=== PATIENT | female | born 2000 | race African-American/Black ===

== ENCOUNTER 2018-10-04 17:46 | Emergency (ER) | payer MEDICAID, OTHER ==
[2018-10-04 18:25] LABS: #Eosinphils 0.1 thou/uL (0.0-0.7); #Lymphocytes 1.5 thou/uL (1.20-3.40); #Monocytes 0.6 thou/uL (0.11-0.59); #Neutrophils 9.6 thou/uL (1.40-6.50); %Basophils 0.2 % (0.0-1.0); %Eosinophils 0.5 % (0.0-10.0); %Lymphocytes 12.6 % (28.0-48.0); %Monocytes 5.1 % (0.0-4.0); %Neutrophils 81.6 % (31.0-61.0); Hemoglobin 11.3 g/dL (12.0-16.0); Mean Corpuscular HGB CONC 33.6 g/dL (32.0-36.0); Mean Corpuscular Hemoglobin 27.2 pg (25.0-35.0); Mean Corpuscular Volume 80.8 fL (78.0-98.0); Mean Platelet Volume 8.4 fL (7.4-10.4); Platelet Count 257 thou/uL (130-400); RBC Distribution Width 13.6 % (11.5-14.5); Red Blood Cell (RBC) Count 4.16 mill/uL (4.00-5.20); White Blood Cell (WBC) Count 11.8 thou/uL (4.8-10.8)
--- NOTE | 2018-10-04 19:11 | ULT ---
ULTRASOUND PELVIC ULTRASOUND TRANSVAGINAL DOPPLER DUPLEX: DATE: 10/04/2018 HISTORY: 17-year-old female with vaginal bleeding TECHNIQUE: Transabdominal transducer and endovaginal transducer used to visualize intrapelvic contents with clemens scale, color-flow, and spectral analysis. FINDINGS: There is an intrauterine gestational sac. The gestational sac size appears somewhat disproportionately large relative to the fetus. Small crescentic thin hypoechoic area adjacent to one portion of the gestational sac is suspicious fo r small subchorionic hemorrhage. biometry: BPD: 1.5 cm, 12 week 1 day Head circumference: 6.0 cm, 12 week 2 day Abdominal circumference: 5.3 cm, 12 week 1 day Femur length: 0.5 cm. Does not register weeks and days. Pupukea-rump length: 4.8 cm, 11 weeks 4 days heart rate: 186 bpm No free fluid in the cul-de-sac. Bilateral ovaries appear normal with blood flow. No corpus luteal cyst. IMPRESSION: 1) live first trimester intrauterine gestation estimated to be approximately 12 weeks 0 days gestatio nal age. 2) probable small subchronic hemorrhage. 3) gestational sac disproportionately large relative to pole.
[2018-10-04 19:39] LABS: Bilirubin Negative (Negative); Blood, Urine Large (Negative); Clarity TURBID (Clear); Glucose, Urine (Dipstick) Negative (Negative); Leukocyte Negative (Negative); Nitrite Negative (Negative); Protein, Urine (Dipstick) Negative (Neg-Trace); Specific Gravity, Urine 1.027 (1.002-1.036); pH, Urine 6.5 (5.0-9.0)
[2018-10-04 19:43] LABS: Bacteria/HPF Rare-Few HPF (None Seen); Hyaline Casts/LPF 7-10 HYALINE CAST LPF (0-3 Hyaline); WBC/HPF 0-3 HPF (0-3)
[2018-10-04 19:45] LABS: Pathc Cast-AUWi Flag 3.26 (0-2.49)
[2018-10-04 19:46] LABS: Manual Microscopic Reviewed? No Path Casts Seen
[2018-10-07 00:02] LABS: Chlamydia by PCR Not Detected (NotDetected); GC by PCR Not Detected (NotDetected)
== END 2018-10-04 21:37 | disposition home or self-care (01) ==
LOC: ERS 17:46
DX: O20.0 Threatened abortion (principal); Z3A.11 11 weeks gestation of pregnancy
CPT/HCPCS: 36415; 76856; 81003; 81015; 84702; 85025; 86900; 86901; 87480; 87491; 87510; 87591; 87660; 96360

== ENCOUNTER 2018-10-12 03:25 | Emergency (ER) | payer OTHER ==
[2018-10-12 03:56] LABS: Bilirubin Negative (Negative); Blood, Urine Large (Negative); Clarity CLOUDY (Clear); Glucose, Urine (Dipstick) Negative (Negative); Leukocyte Negative (Negative); Nitrite Negative (Negative); Protein, Urine (Dipstick) Negative (Neg-Trace); Specific Gravity, Urine 1.018 (1.002-1.036); Urobilinogen 0.2 mg/dL (0.2-1.0); pH, Urine 6.5 (5.0-9.0)
[2018-10-12 03:58] LABS: Bacteria/HPF 2+ HPF (None Seen); Hyaline Casts/LPF 4-6 HYALINE CAST LPF (0-3 Hyaline); Pathc Cast-AUWi Flag 1.76 (0-2.49); Squamous Epithelial 21-50 HPF (0-3); WBC/HPF 0-3 HPF (0-3)
[2018-10-12 03:58] LABS: #Eosinphils 0.1 thou/uL (0.0-0.7); #Monocytes 0.6 thou/uL (0.11-0.59); #Neutrophils 8.3 thou/uL (1.40-6.50); %Basophils 0.4 % (0.0-1.0); %Eosinophils 0.9 % (0.0-10.0); %Lymphocytes 17.6 % (28.0-48.0); %Monocytes 5.5 % (0.0-4.0); %Neutrophils 75.5 % (31.0-61.0); Hemoglobin 11.3 g/dL (12.0-16.0); Mean Corpuscular HGB CONC 32.8 g/dL (32.0-36.0); Mean Corpuscular Hemoglobin 26.7 pg (25.0-35.0); Mean Corpuscular Volume 81.4 fL (78.0-98.0); Mean Platelet Volume 8.8 fL (7.4-10.4); Platelet Count 295 thou/uL (130-400); RBC Distribution Width 13.8 % (11.5-14.5); Red Blood Cell (RBC) Count 4.25 mill/uL (4.00-5.20); White Blood Cell (WBC) Count 11.1 thou/uL (4.8-10.8)
[2018-10-12 04:17] LABS: ALT (SGPT) 14 U/L (8-55); AST (SGOT) 15 U/L (5-30); Alkaline Phosphatase 46 U/L (40-150); Anion Gap 13 mmol/L (10-20); BUN (Urea Nitrogen) 10 mg/dL (8.4-21.0); Bilirubin, Total 0.2 mg/dL (0.2-1.2); Calc. Creatinine Clearance 0 mL/min (70-130); Calcium 9.6 mg/dL (7.8-10.44); Carbon Dioxide 20 mmol/L (22-29); Chloride 104 mmol/L (98-107); Estimated GFR-MDRD Greater than 90; Globulin 3.6 g/dL (2.4-3.5); Glucose 91 mg/dL (70-105); Potassium 3.6 mmol/L (3.5-5.1); Protein, Total 7.6 g/dL (6.0-8.3); Sodium 133 mmol/L (136-145)
--- NOTE | 2018-10-12 07:36 | ULT ---
PELVIC ULTRASOUND: COMPARISON: 10/04/2018. INDICATION: Vaginal bleeding. Subchorionic hemorrhage, followup. FINDINGS: There is redemonstration of an intrauterine gestation, which by sonographic imaging corresponds to a 12-week 6-day gestation placing the estimated date of delivery of 04/20/2019. There is a focus of al tered echotexture with decreased, mildly complex echotexture measuring approximately 5 cm in diameter suspicious for subchorionic hemorrhage, which has increased in volume from recent, comparison exam. cardiac activity is elicited, documented at 178 b.p.m. motion is noted by the sonographe r during the exam. IMPRESSION: 1. Size progression of complex echotexture hypoechoic collection, favoring enlarging subchorionic he morrhage. This does exert a component of mass effect upon the gestational sac, where visualized. Re commend close continued followup. 2. Live intrauterine gestation as discussed above. CODE T POS: SHEEBA
== END 2018-10-12 05:37 | disposition home or self-care (01) ==
LOC: ERS 03:25
DX: O20.9 Hemorrhage in early pregnancy, unspecified (principal); Z3A.12 12 weeks gestation of pregnancy
CPT/HCPCS: 76856; 80053; 81003; 81015; 84702; 85025; 86900; 86901

== ENCOUNTER 2018-10-15 14:14 | Emergency (ER) | payer OTHER ==
[2018-10-15 15:13] LABS: #Lymphocytes 1.2 thou/uL (1.20-3.40); #Monocytes 0.6 thou/uL (0.11-0.59); #Neutrophils 8.7 thou/uL (1.40-6.50); %Basophils 0.1 % (0.0-1.0); %Eosinophils 0.4 % (0.0-10.0); %Lymphocytes 11.5 % (28.0-48.0); %Monocytes 5.6 % (0.0-4.0); %Neutrophils 82.5 % (31.0-61.0); Hemoglobin 10.7 g/dL (12.0-16.0); Mean Corpuscular HGB CONC 32.9 g/dL (32.0-36.0); Mean Corpuscular Hemoglobin 26.9 pg (25.0-35.0); Mean Corpuscular Volume 81.7 fL (78.0-98.0); Mean Platelet Volume 8.3 fL (7.4-10.4); Platelet Count 271 thou/uL (130-400); RBC Distribution Width 13.8 % (11.5-14.5); Red Blood Cell (RBC) Count 3.98 mill/uL (4.00-5.20); White Blood Cell (WBC) Count 10.5 thou/uL (4.8-10.8)
--- NOTE | 2018-10-15 16:55 | ULT ---
ULTRASOUND OBSTETRICAL COMPLETE: DATE: 10/15/2018 HISTORY: 17-year-old female with FINDINGS: number: melendez lie: Variable Maternal cervix: 6 cm. Closed. Placenta: Posterior. No placenta previa or abruptio placentae. There is a mass with mixed, heterogeneous echogenicity at the inferior aspect of the uterus, abutting the inferior margin of the gestational sac. The retail chain store area supervisor has measured a well-circumscribed 3.5 x 3.5 x 2 cm cystic appearing component that is interspersed with extensive irregular intermediate ec hogenicity material. This is consistent with blood clot/hematoma. This mass is probably part of a larger mass measuring approximately 6 x 5 cm, with intermediate echogenicity material that is probabl y blood clot surrounding the more hypoechoic components. Amniotic fluid volume: Subjectively within normal limits. heart rate: 180 bpm anatomy not evaluated biometry: Biparietal diameter (BPD): 2.2 cm 13 w 4 d Head circumference (HC): 8.4 cm 13 w 5 d Abdominal circumference (AC): 7.2 cm 13 w 5 d Femur length (FL): 1.0 cm 13 w 0 d Average ultrasound age (AUA): 13 w 3 d Estimated date of delivery (ZANDER): 04/19/2019 IMPRESSION: 1) Live very early 2nd trimester intrauterine gestation. 2) Estimated gestational age of 13 weeks, 3 days 3)subchorionic hematoma, at least 3.5 cm in size, and possibly as large as 6 cm.
== END 2018-10-15 18:25 | disposition home or self-care (01) ==
LOC: ERS 14:14
DX: O20.0 Threatened abortion (principal); Z3A.12 12 weeks gestation of pregnancy
CPT/HCPCS: 36415; 76856; 84702; 85025; 86900; 86901; 93976

== ENCOUNTER 2019-03-17 10:31 | Day surgery (SDC) | payer OTHER ==
[2019-03-17 11:19] LABS: #Basophils 0.1 thou/uL (0.0-0.2); #Eosinphils 0.1 thou/uL (0.0-0.7); #Lymphocytes 1.5 thou/uL (1.20-3.40); #Monocytes 0.7 thou/uL (0.11-0.59); #Neutrophils 7.6 thou/uL (1.40-6.50); %Basophils 0.7 % (0.0-1.0); %Eosinophils 0.7 % (0.0-10.0); %Lymphocytes 15.3 % (28.0-48.0); %Monocytes 6.6 % (0.0-4.0); %Neutrophils 76.6 % (31.0-61.0); Hemoglobin 10.8 g/dL (12.0-16.0); Mean Corpuscular HGB CONC 32.9 g/dL (32.0-36.0); Mean Corpuscular Hemoglobin 25.5 pg (25.0-35.0); Mean Corpuscular Volume 77.4 fL (78.0-98.0); Mean Platelet Volume 10.5 fL (7.4-10.4); Platelet Count 221 thou/uL (130-400); RBC Distribution Width 17.4 % (11.5-14.5); Red Blood Cell (RBC) Count 4.26 mill/uL (4.00-5.20); White Blood Cell (WBC) Count 9.9 thou/uL (4.8-10.8)
[2019-03-17 11:35] LABS: ALT (SGPT) 12 U/L (8-55); AST (SGOT) 21 U/L (5-34); Albumin 3.5 g/dL (3.5-5.0); Alkaline Phosphatase 141 U/L (40-100); Anion Gap 12 mmol/L (10-20); BUN (Urea Nitrogen) 7 mg/dL (7.0-18.7); Bilirubin, Total 0.3 mg/dL (0.2-1.2); Calc. Creatinine Clearance 0 mL/min (70-130); Calcium 9.4 mg/dL (7.8-10.44); Carbon Dioxide 22 mmol/L (22-29); Chloride 105 mmol/L (98-107); Estimated GFR-MDRD Greater than 90; Globulin 3.5 g/dL (2.4-3.5); Glucose 81 mg/dL (70-105); Potassium 3.8 mmol/L (3.5-5.1); Sodium 135 mmol/L (136-145)
--- NOTE | 2019-03-17 11:50 | ULT ---
LIMITED OB ULTRASOUND: CLINICAL INDICATION: Gestational hypertension. Evaluation of size and dates. FINDINGS: Limited evaluation reveals a live intrauterine gestation, which by sonographic imaging correspo nds to 34 weeks' 4 days' gestation, placing estimated date of delivery at 04/24/2019. Estimated weight is 2542 g, placing fetus at the 33rd percentile by Hadlock criteria. anatomic surv ey not performed on the basis of this exam. The fetus is in a cephalic lie the placenta is primarily posterior in location. Cervix is not reliably visualized for comment. JEMIMA is calculated at 13.5. IMPRESSION: Single live intrauterine gestation, as above. As necessary, continued imaging followup may be mare damon Transcribed Date/Time: 03/17/2019 11:54 AM
[2019-03-17] MEDS ORDERED: hydrALAZINE 20 MG/ML VIAL SLOW IVP PRN (12:03)
[2019-03-17 12:13] VITALS: BMI 34.7
[2019-03-17] MEDS ORDERED: Betamet Acet/Betamet Na Ph 30 MG/5 ML VIAL IM SCH (12:15)
[2019-03-17 12:19] VITALS: BP 116/76; TEMP 98.6
--- NOTE | 2019-03-17 13:41 | PRG ---
DATE OF SERVICE: 03/17/2019 TIME OF SERVICE: [address] Garcia acting under [facility] not on shift for OB hospitalist. Ms. Lind is a 18-year-old, 1, para 0, at 34 to 35 weeks and a private practice. She was noted to have elevated blood pressures to 150s over high 90s in the office and was sent over for further evaluation. She denies headache or scotoma. She reports an active fetus. Upon presentation, her laboratory was performed. Hematocrit 33%. She has a normal platelet count of 221. AST was within normal limits at 21. Her protein-creatinine ratio was undetectable, which was consistent with negative urine protein in the office. She had ultrasound performed, which revealed active fetus, EFW of 2542 g, placing at 33rd percentile for ZANDER. JEMIMA of 13.5 and a normal cervix, cephalic presentation, posterior placenta. Serial blood pressures were less than 130s over 90s. Decision was made to administer betamethasone 12 mg IM x1 in labor and delivery. The patient represented to [facility] tomorrow for second dose of betamethasone. Continue weekly visits and ER precautions for preeclampsia symptoms. Job ID: [id number]
== END 2019-03-17 12:39 | disposition home health service (06) ==
LOC: L&D/OP 10:31
PROVIDERS: ATTEND Obstetrics & Gynecology
DX: O13.3 Gestational [pregnancy-induced] hypertension without significant proteinuria, third trimester (principal); Z3A.34 34 weeks gestation of pregnancy
CPT/HCPCS: 36415; 76815; 80053; 82570; 84156; 85025; J0702

== ENCOUNTER 2019-03-17 20:16 | Day surgery (SDC) | payer OTHER ==
[2019-03-17] MEDS ORDERED: hydrALAZINE 20 MG/ML VIAL SLOW IVP PRN (23:01)
--- NOTE | 2019-03-18 00:08 | PRG ---
DATE OF SERVICE: 03/17/2019 CHIEF COMPLAINT: Elevated blood pressure. HISTORY OF PRESENT ILLNESS: The patient is a 18-year-old G1, P0 female with an intrauterine at 34 weeks and 4 days, who was earlier seen in Labor and Delivery by Dr. Garcia, her primary OB for concerns of elevated blood pressures. The patient's workup was completely negative at that time and was started on outpatient steroids with her second dose being scheduled tomorrow in the clinic. The patient was discharged home. She returned this evening reporting that she had checked her blood pressure in the grocery store and had a pressure of 156 systolic, followed by 120s systolic over 70s diastolic. Given the elevated pressure, she came here for evaluation. The patient denies headache, chest pain, shortness of breath, nausea, vomiting, fever, diarrhea, or constipation. Denies hip problems, knee problems, or muscle weakness. Denies vaginal bleeding, or leakage of fluid. PAST MEDICAL HISTORY: Negative. PAST SURGICAL HISTORY: Negative. ALLERGIES: NO KNOWN DRUG ALLERGIES. SOCIAL HISTORY: Denies drug, alcohol, or tobacco use. MEDICATIONS: vitamins. REVIEW OF SYSTEMS: Per HPI. PHYSICAL EXAMINATION: VITAL SIGNS: Blood pressures in the one teens to 139 systolic and 70s to 80s with a single diastolic of 90, pulse is in the 70s to 80s, respiratory rate of 18, temperature 98.9. GENERAL: She appears to be in no acute distress. She is alert, oriented, cooperative, and pleasant to interact with. HEAD: Normocephalic, atraumatic. LUNGS: Clear to auscultation bilaterally. HEART: Has regular rate and rhythm. ABDOMEN: Gravid, soft, nontender. EXTREMITIES: Nontender, nonedematous. heart tracing shows the fetus with baseline in the 140s with moderate long-term variability, positive 15 x 15 accelerations, and contractions visible on the monitor, but not felt by the patient. Given that labs done earlier today, they were not repeated this evening. ASSESSMENT AND PLAN: The patient is a 18-year-old primid with an intrauterine at 34 weeks and 4 days, here for blood pressure evaluation. Pressures here have all been within normal range except for an isolated diastolic of 90. Given the patient's asymptomatology and previous normal labs, we will be discharging the patient home with instructions to follow up with Dr. Garcia's office tomorrow scheduled for her 2nd steroid shot and re-evaluation. The patient again is being discharged home with labor precautions. She has expressed understanding of the plan. Job ID: [id number]
== END 2019-03-17 23:10 | disposition home or self-care (01) ==
LOC: L&D/OP 20:16
PROVIDERS: ATTEND Obstetrics & Gynecology
DX: O99.89 Other specified diseases and conditions complicating pregnancy, childbirth and the puerperium (principal); R03.0 Elevated blood-pressure reading, without diagnosis of hypertension; Z3A.34 34 weeks gestation of pregnancy
CPT/HCPCS: 99282

== ENCOUNTER 2019-03-18 11:29 | Day surgery (SDC) | payer OTHER ==
[2019-03-18 11:52] VITALS: BMI 35.0
--- NOTE | 2019-03-18 12:27 | HP ---
TIME OF EVALUATION: Roughly 12 noon. LOCATION: Antepartum triage unit. REASON FOR EVALUATION/CHIEF COMPLAINT: 1. Complaint of high blood pressure at home. 2. This is a patient of Dr. Garcia. HISTORY OF PRESENT ILLNESS: In brief, this is a 18-year-old G1, P0, who was seen yesterday (twice) in Labor and Delivery and was successfully ruled out for elevated blood pressures. She stated that yesterday, she had high blood pressure at [facility] at 150/90, and so came in for evaluation. She comes in now today for re-evaluation of her blood pressure. It is important to note that Dr. Garcia is currently away and not available. She denies headaches or other complications. She has good movement. She has no leakage of fluid or vaginal bleeding. She has no recent trauma. REVIEW OF SYSTEMS: Complete review of systems was checked and is otherwise negative unless specified in the HPI. PAST MEDICAL HISTORY: Negative. PAST SURGICAL HISTORY: Negative. PAST PSYCHOLOGICAL HISTORY: Negative. SOCIAL HISTORY: Noncontributory. ALLERGIES: NONE. PHYSICAL EXAMINATION: VITAL SIGNS: Blood pressure is 126/75, pulse is 80, respirations are 16 to 18 and they are unlabored. monitor shows heart tones in the 120s to 130s and they are reactive with moderate variability and no decelerations. No contractions on tocodynamometer. GENERAL: She is in no acute distress. ABDOMEN: Soft and nontender. PELVIC: Currently deferred. INTERVENTIONS: Recently: 1. The patient had an ultrasound yesterday that showed normal JEMIMA of 13 and 33 percentile growth in the cephalic presentation. No abnormalities were seen yesterday with ultrasound. 2. Blood work was done yesterday and they were normal as well. ASSESSMENT: This is a G1, P0, at a current gestational age of 34 weeks and 5 days, 18-year-old G1, P0, here for blood pressure evaluation, but currently she is normotensive. PLAN: 1. Serial blood pressures for 4 hours. 2. I have ordered a repeat CMP and CBC. 3. I would not get a urine protein at this time as she is not hypertensive. 4. antepartum surveillance is normal with a reactive NST. 5. I have no indication to do delivery or suspect preeclampsia at this time, but we will continue to monitor again. Job ID: [id number]
[2019-03-18 12:35] LABS: Hemoglobin 10.1 g/dL (12.0-16.0); Mean Corpuscular HGB CONC 31.8 g/dL (32.0-36.0); Mean Corpuscular Hemoglobin 24.8 pg (25.0-35.0); Mean Corpuscular Volume 77.8 fL (78.0-98.0); Mean Platelet Volume 10.5 fL (7.4-10.4); Platelet Count 228 thou/uL (130-400); RBC Distribution Width 17.6 % (11.5-14.5); Red Blood Cell (RBC) Count 4.07 mill/uL (4.00-5.20); White Blood Cell (WBC) Count 14.7 thou/uL (4.8-10.8)
[2019-03-18 12:55] LABS: ALT (SGPT) 13 U/L (8-55); AST (SGOT) 19 U/L (5-34); Albumin 3.4 g/dL (3.5-5.0); Alkaline Phosphatase 132 U/L (40-100); Anion Gap 13 mmol/L (10-20); BUN (Urea Nitrogen) 8 mg/dL (7.0-18.7); Bilirubin, Total 0.3 mg/dL (0.2-1.2); Calc. Creatinine Clearance 196 mL/min (70-130); Calcium 9.4 mg/dL (7.8-10.44); Carbon Dioxide 20 mmol/L (22-29); Chloride 106 mmol/L (98-107); Estimated GFR-MDRD Greater than 90; Globulin 3.3 g/dL (2.4-3.5); Glucose 99 mg/dL (70-105); Potassium 3.5 mmol/L (3.5-5.1); Protein, Total 6.7 g/dL (6.0-8.3); Sodium 135 mmol/L (136-145)
--- NOTE | 2019-03-18 13:16 | PDOC.EVN ---
Event Note - Event Note Event Note: L&D Triage Patient seen at bedside about 30 minutes previously (Patient here for BP obs). After I first evaluated her, I was called to asses another patient with severe abdominal pain. Ms. Lind is stable and I have reviewed all BPs since arrival...and all pressures are 110s-120s systolic to 70s diastolic. CBC and CMP were checked for PIH eval, and all are acceptable range. Mild WBC elevation (leucocytosis) is nonspecific. NST reactive, and OK to be off monitor as we continue BP obs.
--- NOTE | 2019-03-18 15:29 | PDOC.EVN ---
Event Note - Event Note Event Note: OBS note: BPs over 4 hours have all been normal. No evidence maternal compromise at this time. I reviewed with her possible "white coat hypertension" in office. Here all ok. F/U in 24-48 hrs with MD or on Friday next week.
== END 2019-03-18 15:40 | disposition home health service (06) ==
LOC: L&D/OP 11:29
PROVIDERS: ATTEND Obstetrics & Gynecology
DX: O16.3 Unspecified maternal hypertension, third trimester (principal); O99.113 Other diseases of the blood and blood-forming organs and certain disorders involving the immune mechanism complicating pregnancy, third trimester; D72.829 Elevated white blood cell count, unspecified; Z3A.34 34 weeks gestation of pregnancy
CPT/HCPCS: 36415; 80053; 85027; 99283

== ENCOUNTER 2019-04-06 15:55 | Inpatient (IN) | payer OTHER ==
--- NOTE | 2019-04-06 16:16 | PDOC.LDHP ---
Labor and Delivery H&P Chief complaint: scheduled induction HPI: preeclampsia mild alpha thal carrier for iol at 37 wk per guidelines Current gestational age (weeks): 37 Due date: 04/23/19 Dating criteria: last menstrual period, first trimester ultrasound Grav: 1 Para: 0 Current complications: preeclampsia without severe features Abnormal US findings: No Current medications: pre- vitamins Previous surgical history: none Allergies/Adverse Reactions: Allergies Allergy/AdvReac Type Severity Reaction Status Date / Time No Known Allergies Allergy Verified 03/18/19 11:54 - Physical Exam Vital signs reviewed and normal: yes General: NAD Heart: RRR Lungs: CTAB Abdomen: NTTP Extremeties: trace edema FHT: category 1 - Vaginal Exam cm dilated: 0 Effacement: 25% Station: -2 - OB Labs Blood type: A RH: positive Antibody Screen: negative HIV: negative RPR: negative HEPSAg: negative 1 hour GCT: negative GBS: negative Urine drug screen: negative Rubella: immune - Assessment L&D Assessment: medically indicated induction - Plan Plan: admit to L&D, cervical ripening, labor augmentation if indicated
[2019-04-06] MEDS ORDERED: NS w/ Oxytocin 10 units 500 ML IV SCH (16:29)
[2019-04-06] MEDS ORDERED: Promethazine HCl 25 MG/ML VIAL IM PRN (16:29)
[2019-04-06] MEDS ORDERED: hydrALAZINE 20 MG/ML VIAL SLOW IVP PRN (16:29)
[2019-04-06] MEDS ORDERED: Ondansetron PF 4 MG/2 ML Vial IVP PRN (16:29)
[2019-04-06] MEDS ORDERED: Lactated Ringer's 1,000 ML IV SCH (16:29)
[2019-04-06] MEDS ORDERED: NS / Oxytocin 40 units/1000ml 1,000 ML IV PRN (16:29)
[2019-04-06] MEDS ORDERED: Lidocaine 1% (PF) 30 ML VIAL SC PRN (16:29)
[2019-04-06] MEDS ORDERED: Ibuprofen 800 MG TAB PO PRN (16:29)
[2019-04-06] MEDS ORDERED: HYDROcodone/Acetaminophen 5/325 mg Tablet PO PRN ×2 (16:29)
[2019-04-06] MEDS ORDERED: Misoprostol 100 MCG TAB VAG SCH ×2 (16:29)
[2019-04-06 16:44] VITALS: BMI 35.4
[2019-04-06] MEDS: Lactated Ringer's 1,000 ML IV SCH (17:00)
[2019-04-06 17:38] LABS: Hemoglobin 10.9 g/dL (12.0-16.0); Mean Corpuscular HGB CONC 33.7 g/dL (32.0-36.0); Mean Corpuscular Hemoglobin 26.3 pg (25.0-35.0); Mean Corpuscular Volume 78.1 fL (78.0-98.0); Mean Platelet Volume 11.5 fL (7.4-10.4); Platelet Count 177 thou/uL (130-400); RBC Distribution Width 19.4 % (11.5-14.5); Red Blood Cell (RBC) Count 4.15 mill/uL (4.00-5.20); White Blood Cell (WBC) Count 10.4 thou/uL (4.8-10.8)
[2019-04-06 17:52] LABS: ALT (SGPT) 19 U/L (8-55); AST (SGOT) 32 U/L (5-34); Albumin 3.3 g/dL (3.5-5.0); Alkaline Phosphatase 153 U/L (40-100); Anion Gap 15 mmol/L (10-20); BUN (Urea Nitrogen) 12 mg/dL (7.0-18.7); Bilirubin, Total 0.3 mg/dL (0.2-1.2); Calc. Creatinine Clearance 192 mL/min (70-130); Carbon Dioxide 18 mmol/L (22-29); Chloride 108 mmol/L (98-107); Estimated GFR-MDRD Greater than 90; Globulin 3.2 g/dL (2.4-3.5); Glucose 74 mg/dL (70-105); Potassium 4.1 mmol/L (3.5-5.1); Protein, Total 6.5 g/dL (6.0-8.3); Sodium 137 mmol/L (136-145)
[2019-04-06 18:10] LABS: Hep B Surf Ag Non-Reactive S/CO (NonReactive); Syphilis Antibody Nonreactive (Nonreactive); Syphilis Antibody Index 0.04 S/CO (<1.00 Non-Reactive)
[2019-04-07] MEDS: Butorphanol Tartrate 1 MG/ML VIAL SLOW IVP PRN ×2 (00:07→02:28)
[2019-04-07] MEDS ORDERED: Fentanyl 4 mcg/Bup 0.1% Cadd 100 ML ONE (02:19)
[2019-04-07] MEDS ORDERED: Fentanyl 100 MCG/2 ML VIAL ONE (04:19)
[2019-04-07] MEDS ORDERED: Bupivacaine 0.5% 10 ML VIAL ONE (04:19)
[2019-04-07] MEDS ORDERED: Ondansetron PF 4 MG/2 ML Vial IVP PRN ×2 (04:27→14:27)
[2019-04-07] MEDS ORDERED: diphenhydrAMINE 50 MG/ML VIAL IVP PRN (04:27)
[2019-04-07] MEDS ORDERED: Naloxone HCl 0.4 mg/ml Vial IVP PRN ×2 (04:27)
[2019-04-07] MEDS ORDERED: Promethazine HCl 25 MG/ML VIAL IM PRN ×2 (04:27→14:27)
[2019-04-07] MEDS ORDERED: Acetaminophen 325 MG TAB PO PRN (04:27)
[2019-04-07] MEDS ORDERED: Lactated Ringer's 500 ML IV PRN (04:27)
[2019-04-07] MEDS ORDERED: ePHEDrine/0.9% NaCl/PF SYRINGE 50 mg/10 ml SLOW IVP PRN (04:27)
[2019-04-07] MEDS ORDERED: Bupivacaine 0.25% 10 ML VIAL EPIDURAL ONE (04:28)
[2019-04-07] MEDS ORDERED: Fentanyl 100 MCG/2 ML VIAL I-THECAL ONE (04:28)
[2019-04-07] MEDS ORDERED: Communication Order-Pharmacy FS SCH (04:30)
[2019-04-07] MEDS ORDERED: Fentanyl 4 mcg/Bupivacaine 0.1% Cassette 100 ML EPIDURAL SCH (04:30)
[2019-04-07] MEDS ORDERED: NS / Oxytocin 40 units/1000ml 1,000 ML ONE (07:21)
[2019-04-07] MEDS ORDERED: Lidocaine 1% (PF) 30 ML VIAL ONE (07:21)
--- NOTE | 2019-04-07 10:47 | PDOC.OPDEL ---
OB Operative/Delivery Note Delivery Dr/Surgeon: Jose for [facility] Pre-Delivery Diagnosis: medically indicated induction (preeclampsia 37 wk) Weeks gestation: 37 Anesthesia: epidural - Findings A Sex: male Weight: 6 lb 8 oz - 1 min: 8 - 5 min: 9 - Additional Findings/Plan Placenta delivered: spontaneous Repaired Obstetrical Laceration: 2nd degree (repair w [address]) Estimated blood loss: <500 Compilations/Other Findings: controlled delivery, delayed cord clamp. Post delivery plan: routine recovery
[2019-04-07] MEDS ORDERED: Lanolin Ointment 7 GM TUBE TOP PRN (14:27)
[2019-04-07] MEDS ORDERED: Benzocaine-Menthol 82.5 ML CAN TOP PRN (14:27)
[2019-04-07] MEDS ORDERED: HYDROcodone/Acetaminophen 5/325 mg Tablet PO PRN ×2 (14:27)
[2019-04-07] MEDS ORDERED: NS / Oxytocin 40 units/1000ml 1,000 ML IV SCH (14:27)
[2019-04-07] MEDS ORDERED: Milk Of Magnesia 30 ML UDCUP PO PRN (14:27)
[2019-04-07] MEDS ORDERED: Preparation H Ointment 28 GM TUBE PR PRN (14:27)
[2019-04-07] MEDS ORDERED: hydrALAZINE 20 MG/ML VIAL SLOW IVP PRN ×2 (14:27→20:22)
[2019-04-07] MEDS ORDERED: Zolpidem Tartrate 5 MG TAB PO PRN (14:27)
[2019-04-07] MEDS ORDERED: diphenhydrAMINE 25 MG CAP PO PRN (14:27)
[2019-04-07] MEDS ORDERED: Bisacodyl 10 MG SUPP PR PRN (14:27)
[2019-04-07] MEDS ORDERED: Ibuprofen 800 MG TAB PO SCH (14:45)
[2019-04-07] MEDS: Lactated Ringer's 1,000 ML IV SCH (16:44)
[2019-04-07] MEDS: Ibuprofen 800 MG TAB PO SCH (21:25)
[2019-04-07] MEDS: Docusate Calcium (SURFAK) 240 MG CAP PO SCH (21:25)
[2019-04-08] MEDS: Ibuprofen 800 MG TAB PO SCH ×3 (05:15→21:12)
[2019-04-08] MEDS: Prenatal Vitamin 1 TAB PO SCH (08:38)
[2019-04-08] MEDS: Docusate Calcium (SURFAK) 240 MG CAP PO SCH ×2 (08:38→21:12)
--- NOTE | 2019-04-08 08:46 | PDOC.PP ---
Post Progress Note Post Day #: 1 PO intake tolerated: yes Flatus: yes Ambulation: yes Vital Signs (12 hours) Temp Pulse Resp BP Pulse Ox 04/08/19 04:30 98.4 F 85 18 117/63 04/08/19 00:15 98.3 F 95 18 124/63 04/07/19 21:00 104 H Weight Weight 200 lb - Physical Examination General: NAD Cardiovascular: no m/r/g, RRR Respiratory: clear to auscultation bilaterally Abdominal: + bowel sounds, lochia Neurological: no gross focal deficits Psychiatric: A&Ox3, normal affect Result Diagrams: 04/06/19 17:27 04/06/19 17:27 Additional Labs: Post Labs Blood Type A POSITIVE 04/06/19 17:27 Hep Bs Antigen Non-Reactive S/CO (NonReactive) 04/06/19 17:27 - Assessment/Plan doing well. began procardia for elevated bps. likely dc home on it for 4 wk pp
[2019-04-08] MEDS ORDERED: Adacel (T-DAP) 0.5 ML SYRINGE IM ONE (14:27)
[2019-04-09] MEDS: Ibuprofen 800 MG TAB PO SCH ×2 (05:27→14:38)
--- NOTE | 2019-04-09 07:06 | PDOC.PP ---
Post Progress Note Post Day #: 2 PO intake tolerated: yes Flatus: yes Ambulation: yes Vital Signs (12 hours) Temp Pulse Resp BP Pulse Ox 04/08/19 20:05 99 04/08/19 19:45 98.3 F 103 H 12 137/80 99 Weight Weight 200 lb - Physical Examination General: NAD Cardiovascular: no m/r/g, RRR Abdominal: + bowel sounds, lochia Extremities: negative homans (B) Neurological: no gross focal deficits Result Diagrams: 04/06/19 17:27 04/06/19 17:27 Additional Labs: Post Labs Blood Type A POSITIVE 04/06/19 17:27 Hep Bs Antigen Non-Reactive S/CO (NonReactive) 04/06/19 17:27 - Assessment/Plan doing well dc home will rx procardia in case bp elevate
[2019-04-09 08:03] VITALS: BP 134/90; TEMP 98.4
[2019-04-09] MEDS: Docusate Calcium (SURFAK) 240 MG CAP PO SCH (09:25)
[2019-04-09] MEDS: Prenatal Vitamin 1 TAB PO SCH (09:26)
== END 2019-04-09 17:43 | disposition home or self-care (01) | DRG 807 ==
LOC: L&D 15:55 → EEVIPCON 15:55 → 3SW 04-07 17:47
PROVIDERS: ADMIT Obstetrics & Gynecology; ATTEND Obstetrics & Gynecology
PROC: 10907ZC Drainage of Amniotic Fluid, Therapeutic from Products of Conception, Via Natural or Artificial Opening (ICD-10-PCS; principal; 2019-04-07)
PROC: 10E0XZZ Delivery of Products of Conception, External Approach (ICD-10-PCS; 2019-04-07)
PROC: 0KQM0ZZ Repair Perineum Muscle, Open Approach (ICD-10-PCS; 2019-04-07)
PROC: 3E033VJ Introduction of Other Hormone into Peripheral Vein, Percutaneous Approach (ICD-10-PCS; 2019-04-07)
DX: O14.04 Mild to moderate pre-eclampsia, complicating childbirth (principal); Z37.0 Single live birth; O70.1 Second degree perineal laceration during delivery; Z3A.37 37 weeks gestation of pregnancy
CPT/HCPCS: 36415; 51702; 80053; 81003; 85027; 86780; 86850; 86900; 86901; 87340; J0360; J0595; J2001; J2405; J2590; J3010; J3490

== ENCOUNTER 2019-04-22 16:29 | Emergency (ER) | payer OTHER ==
[2019-04-22 20:07] LABS: #Lymphocytes 1.8 thou/uL (1.20-3.40); #Monocytes 0.8 thou/uL (0.11-0.59); %Basophils 0.2 % (0.0-1.0); %Eosinophils 0.1 % (0.0-10.0); %Lymphocytes 11.6 % (28.0-48.0); %Monocytes 5.2 % (0.0-4.0); %Neutrophils 82.9 % (31.0-61.0); Hemoglobin 12.7 g/dL (12.0-16.0); Mean Corpuscular HGB CONC 32.9 g/dL (32.0-36.0); Mean Corpuscular Hemoglobin 26.2 pg (25.0-35.0); Mean Corpuscular Volume 79.8 fL (78.0-98.0); Mean Platelet Volume 9.6 fL (7.4-10.4); Platelet Count 304 thou/uL (130-400); RBC Distribution Width 18.5 % (11.5-14.5); Red Blood Cell (RBC) Count 4.85 mill/uL (4.00-5.20); White Blood Cell (WBC) Count 15.7 thou/uL (4.8-10.8)
[2019-04-22 20:29] LABS: ALT (SGPT) 16 U/L (8-55); AST (SGOT) 16 U/L (5-34); Albumin 4.2 g/dL (3.5-5.0); Alkaline Phosphatase 113 U/L (40-100); Anion Gap 16 mmol/L (10-20); BUN (Urea Nitrogen) 11 mg/dL (7.0-18.7); Bilirubin, Total 0.4 mg/dL (0.2-1.2); Calc. Creatinine Clearance 0 mL/min (70-130); Calcium 9.8 mg/dL (7.8-10.44); Carbon Dioxide 24 mmol/L (22-29); Chloride 101 mmol/L (98-107); Estimated GFR-MDRD 86; Globulin 3.7 g/dL (2.4-3.5); Glucose 100 mg/dL (70-105); Potassium 3.5 mmol/L (3.5-5.1); Protein, Total 7.9 g/dL (6.0-8.3); Sodium 137 mmol/L (136-145)
[2019-04-22] MEDS ORDERED: Morphine 4 MG/ML VIAL ONE (20:31)
[2019-04-22] MEDS ORDERED: Ketorolac Tromethamine 30 MG/ML VIAL ONE (20:31)
[2019-04-22 20:43] LABS: Bacteria/HPF 3+ HPF (None Seen); Bilirubin Negative (Negative); Blood, Urine 1+ (Negative); Clarity Extra Turbid (Clear); Glucose, Urine (Dipstick) Normal (Negative); Leukocyte 500 Leu/uL (Negative); Nitrite Negative (Negative); Protein, Urine (Dipstick) 100 mg/dL (Neg-Trace); Urobilinogen Normal mg/dL (Less than 2); WBC/HPF Greater than 50 HPF (0-3)
[2019-04-22 20:44] LABS: Mucous/LPF 2+ LPF (<2+)
--- NOTE | 2019-04-22 22:50 | MRI ---
MRI LUMBAR SPINE WITH AND WITHOUT IV CONTRAST: 04/22/19 HISTORY: Low back pain with pain above the tailbone for a couple of days. Patient is two weeks and states had epidural for . COMPARISON: None. The visualized retroperitoneal structures demonstrate a normal MRI appearance. Normal signal intensity is demonstrated in the bone marrow. The conus medullaris is normal in appearance and terminates at the level of the L1 vertebral body and demonstrates normal signal intensity. T12-L1 level: There is no disc bulge or disc herniation. Central spinal canal and neural foramina are patent. L1-L2 level: There is no disc bulge or disc herniation. The central spinal canal and neural foramina are patent. L2-L3 level: There is a mild disc osteophyte complex with predominantly lateral disc bulges. There is no significant narrowing of the central spinal canal or neural foramina. L3-L4 level: There is a mild disc bulge and facet degenerative changes. There is no significant central canal narrowing. There is mild left sided neural foraminal narrowing. The right neural foramen is patent. L4-L5 level: There is a disc osteophyte complex with facet degenerative changes noted. Findings resul t in moderate bilateral neural foraminal narrowing with mild narrowing of the central spinal canal. T here is prominence of epidural fat at this level which also results in mass effect and narrowing of t he thecal sac. L5-S1 level: There is no disc bulge or disc herniation. The central spinal canal and neural foramina are patent. There is no epidural fluid collection identified to suggest an epidural abscess collection. No abnorm al areas of enhancement are identified. IMPRESSION: 1. Mild degenerative changes in the lower lumbar spine predominantly at the L4-5 level where the re is facet hypertrophic changes as well as disc osteophyte complex which results in moderate bilater al neural foraminal narrowing as well as central canal narrowing. However, the narrowing of the theca l sac at this level is also secondary to the epidural lipomatosis. 2. No abnormal enhancement is seen, and there are no findings to suggest an epidural abscess on this examination. POS: LANE
== END 2019-04-23 00:25 | disposition home or self-care (01) ==
LOC: ERS 16:29
DX: O99.89 Other specified diseases and conditions complicating pregnancy, childbirth and the puerperium (principal); M54.41 Lumbago with sciatica, right side; M54.42 Lumbago with sciatica, left side; O86.20 Urinary tract infection following delivery, unspecified; M51.26 Other intervertebral disc displacement, lumbar region
CPT/HCPCS: 36415; 72158; 80053; 81003; 81015; 85025; 86140; 96361; 96374; 96375; J1885; J2270

== ENCOUNTER 2019-04-25 20:57 | Emergency (ER) | payer OTHER | END 2019-04-25 23:06 | disposition home or self-care (01) | LOC: ERS 20:57 | DX: L02.31 Cutaneous abscess of buttock (principal) | CPT/HCPCS: 99283 ==

== ENCOUNTER 2020-03-03 10:42 | Emergency (ER) | payer OTHER ==
[2020-03-03] MEDS ORDERED: Ibuprofen 200 MG TAB ONE (12:42)
[2020-03-03 13:14] LABS: Pregnancy Test - Urine (BHCG) Negative (Negative); Pregu Control Background? CLEAR/WHITE (CLR/WHITE); Pregu Control Bar Appear? YES (CONTROL BAR); Specific Gravity 1.034 (1.002-1.036)
== END 2020-03-03 13:30 | disposition home or self-care (01) ==
LOC: ERS 10:42
DX: R51.9 Headache, unspecified (principal)
CPT/HCPCS: 81025; 93005